=== PATIENT | male | born 1970 | race Caucasian/White ===

== ENCOUNTER → 2018-02-25 | Outpatient (CLI) | payer BC ==
[~2018-02-25] MED LIST: ATOR40TA24 PO; LISI-349 PO
[2018-02-25 07:16] LABS: LDL CHOLESTEROL 104 mg/dl
== END ==
LOC: LAB 06:45
PROVIDERS: ATTEND Nurse Practitioner Family
DX: E78.5 Hyperlipidemia, unspecified (principal); E55.9 Vitamin D deficiency, unspecified
CPT/HCPCS: 36415; 82040; 82247; 82306; 82310; 82374; 82435; 82465; 82565; 82947; 83718; 84075; 84132; 84155; 84295; 84450; 84460; 84478; 84520

== ENCOUNTER 2018-09-30 12:14 | Emergency (ER) | payer BC ==
[2018-09-30 12:24] VITALS: BP 121/95
[2018-09-30] MEDS ORDERED: DIPHTH/TETANUS/ACEL. PERTUSSIS IM ONLY ONE (12:25)
[2018-09-30] MEDS ORDERED: LOSA50TA80 PO (12:29)
--- NOTE | 2018-09-30 12:35 | ER Report ---
History and Physical Time Seen By MD: 12:18 Hx. of Stated Complaint: Fish hook stuck in finger HPI/ROS CHIEF COMPLAINT: [place] in left third finger HISTORY OF PRESENT ILLNESS: 48-year-old male patient presents to emergency room with complaint of a fishhook in his left third finger. Patient states that he been out fishing and was getting up his stuff come back into town when he cut himself with the hook. Patient states that his last tetanus shot was 2 years ago. He denies having any fevers or chills. He did try to get the fish hook out, but was not able to. Allergies: Coded Allergies: No Known Drug Allergies (Unverified , 09/30/18) Home Meds Reported Medications Losartan Potassium (LOSARTAN POTASSIUM) 50 Mg Tablet, 50 MG PO DAILY 09/30/18 Atorvastatin Calcium (Lipitor) 40 Mg Tablet, 40 MG PO QHS 10/13/12 Discontinued Reported Medications Lisinopril (Lisinopril) 20 Mg Tablet, 20 MG PO 10/13/12 Past Medical/Surgical History Patient has a past medical history of hypertension, hyperlipidemia, arthritis. Patient has a surgical history of cholecystectomy. Reviewed Nurses Notes: Yes Hx Smoking: No Exposure to Second Hand Smoke?: No Hx Substance Use Disorder: No Hx Alcohol Use: No Constitutional Vital Sign - Last 24 Hours 09/30/18 12:24 Temp 98.3 Pulse 98 Resp 16 B/P (MAP) 121/95 Pulse Ox 90 Physical Exam General appearance: Alert no distress. Respiratory: Chest is non tender, lungs are clear to auscultation. Cardiac: Regular rate and rhythm. Skin: Patient does have a fishhook in the left third finger. DIFFERENTIAL DIAGNOSIS: After history and physical exam differential diagnosis was considered for retained foreign body, fishhook injury to finger. Medical Decision Making ED Course/Re-evaluation ED Course Patient was admitted to an exam room, history and physical were obtained. Differential diagnoses were considered. On examination lungs are clear, heart was regular, patient had a fishhook in the left third finger. With patient consent the finger was anesthetized using 1% lidocaine. 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 Patient requests that he be able to keep the fishhook. He was placed in a specimen cup and return to the patient. Patient will be discharged home at this time. He is to follow-up with his primary care provider with any concerns. He is to monitor for any signs of infection. Patient verbalized understanding and agreement with plan. Decision to Disposition Date: Sep 30, 2018 Decision to Disposition Time: 12:35 Depart Departure Latest Vital Signs Vital Signs Date Time Temp Pulse Resp B/P (MAP) Pulse Ox O2 Delivery O2 Flow Rate FiO2 09/30/18 12:24 98.3 98 16 121/95 90 Impression: Primary Impression: Fish hook injury of finger Condition: Improved Disposition: HOME OR SELF-CARE Referrals: REZA JAY (PCP) Patient Instructions: GENERAL ER DISCHARGE INSTRUCTIONS Additional Instructions: Keep wound dry for 48 hours. Monitor for signs of infection; redness, swelling, heat, discharge, increasing pain or red streaking. Take Tylenol or Ibuprofen as needed for pain. Return to the ER with any concerns. You may change dressing as needed. Problem Qualifiers Primary Impression: Fish hook injury of finger Encounter type: initial encounter Laterality: right Qualified Codes: S69.91XA - Unspecified injury of right wrist, hand and finger(s), initial encounter FRANCOIS WATTS Sep 30, 2018 12:35
== END 2018-09-30 12:58 | disposition home or self-care (01) ==
LOC: ER 12:22
DX: S61.243A Puncture wound with foreign body of left middle finger without damage to nail, initial encounter (principal)
CPT/HCPCS: 99282

== ENCOUNTER → 2018-10-29 | Outpatient (CLI) | payer BC ==
[~2018-10-29] MED LIST changes: +LOSA50TA80 PO
== END ==
LOC: LAB 14:23
PROVIDERS: ATTEND Urology
DX: N28.1 Cyst of kidney, acquired (principal)
CPT/HCPCS: 81001

== ENCOUNTER → 2018-11-03 | Outpatient (CLI) | payer BC ==
--- NOTE | 2018-11-03 17:09 | RADIOLOGY IMAGING REPORT ---
FACILITY: [facility] PATIENT NAME: Armando Lang : 1970 MR: [id number] V: [id number] EXAM DATE: ORDERING PHYSICIAN: COLLIN DUMONT TECHNOLOGIST: [facility] Patient: Armando Lang : 1970 Visit/Account:[id number] Date of Sevice: 11/03/2018 KIDNEYS EXAMINATION: Renal ultrasound. History: Large left renal cyst on CT COMPARISON STUDIES: CT abdomen pelvis September 16, 2018 FINDINGS: Kidneys: Right kidney- 12.3 x 5.8 x 6.7 cm Left kidney- 14.4 x 6.2 x 5.6 cm. There is a 7.3 x 6.4 x 6.9 cm simple cyst upper pole of the left k idney. Uniform and symmetric blood flow in each kidney by Doppler ultrasound. Hydronephrosis: none Resistive index on the right 0.51 on the left 0.48 Bladder: Prevoid volume 345 mL. Post void residual zero. Bilateral ureteral jets are present. Abdominal aorta and IVC: Aorta and IVC are patent by Doppler ultrasound. IMPRESSION: 7.3 x 6.4 x 6.9 cm simple cyst upper pole of the left kidney Report Dictated By: Shruti Dyer MD at 11/03/2018 5:03 PM Report E-Signed By: Shruti Dyer MD at 11/03/2018 5:05 PM WSN:[id number]
== END ==
LOC: US 15:56
PROVIDERS: ATTEND Urology
DX: N28.1 Cyst of kidney, acquired (principal)
CPT/HCPCS: 76705

== ENCOUNTER → 2019-01-12 | Outpatient (CLI) | payer BC ==
[~2019-01-12] MED LIST changes: +CIPR-214 PO
== END ==
LOC: LAB 08:57
PROVIDERS: ATTEND Urology
DX: R31.9 Hematuria, unspecified (principal)
CPT/HCPCS: 81001

== ENCOUNTER → 2019-01-21 | Outpatient (CLI) | payer BC ==
[2019-01-21 10:01] LABS: LDL CHOLESTEROL 100 mg/dl
== END ==
LOC: LAB 07:14
PROVIDERS: ATTEND Nurse Practitioner Family
DX: Z00.00 Encounter for general adult medical examination without abnormal findings (principal); E78.5 Hyperlipidemia, unspecified; E55.9 Vitamin D deficiency, unspecified; R73.9 Hyperglycemia, unspecified
CPT/HCPCS: 36415; 82040; 82247; 82306; 82310; 82374; 82435; 82465; 82565; 82947; 83036; 83718; 84075; 84132; 84155; 84295; 84450; 84460; 84478; 84520